=== PATIENT | male | born 1995 | race Two or more races ===

== ENCOUNTER 2022-07-11 18:27 | Inpatient (IN) | payer OTHER ==
[~2022-07-11] VITALS: Ht 177.8 cm; Wt 90.7 kg
--- NOTE | 2022-07-11 18:54 | NUR ---
PTE SE RECIBE A LAS 6:15 HIPOACTIVO Y SIN PULSO. PTE SE LE COMIENZA COMPRENSIONES Y ACTIVA CLAVE GARDENIA. A LAS 6:18 PTE SE OBSERVA CON PULSO DE 97 Y SE CONTINUA CON AMBU. DESDE LAS 6:20 HASTA LAS 6:22 DR HURTADO INTENTO INTUBAR PTE Y NO PUDO. A LAS 6:24 LLEGA ANESTESIA Y SE INTUMBA A LAS 6:25. A LAS 6:25 SE ADM ROMAZICON Y NARCAN Y SE OBSEREVA QUE EL PTE SE [place]. DR HURTADO ORDENO RESTRINCION X 4.
== END 2022-07-14 12:04 | disposition home or self-care (01) | DRG 917 ==
LOC: EDBD 18:27 → ER 18:27 → MEDI 22:04 → ICU-2 22:04 → ICU 22:20 → ICU-2 22:36 → MEDI 07-12 11:32
PROVIDERS: ADMIT Internal Medicine; ATTEND Internal Medicine
PROC: 0BH17EZ Insertion of Endotracheal Airway into Trachea, Via Natural or Artificial Opening (ICD-10-PCS; principal; 2022-07-11)
PROC: 5A1935Z Respiratory Ventilation, Less than 24 Consecutive Hours (ICD-10-PCS; 2022-07-11)
PROC: BW28ZZZ Computerized Tomography (CT Scan) of Head (ICD-10-PCS; 2022-07-11)
PROC: B24BZZZ Ultrasonography of Heart with Aorta (ICD-10-PCS; 2022-07-13)
PROC: 4A12X4Z Monitoring of Cardiac Electrical Activity, External Approach (ICD-10-PCS; 2022-07-14)
DX: T42.4X1A Poisoning by benzodiazepines, accidental (unintentional), initial encounter (principal); I46.8 Cardiac arrest due to other underlying condition; J96.00 Acute respiratory failure, unspecified whether with hypoxia or hypercapnia; N17.8 Other acute kidney failure; T40.711A Poisoning by cannabis, accidental (unintentional), initial encounter; T40.2X1A Poisoning by other opioids, accidental (unintentional), initial encounter; T40.411A Poisoning by fentanyl or fentanyl analogs, accidental (unintentional), initial encounter; N18.9 Chronic kidney disease, unspecified; F41.8 Other specified anxiety disorders; F10.20 Alcohol dependence, uncomplicated; Z20.822 Contact with and (suspected) exposure to COVID-19; J45.909 Unspecified asthma, uncomplicated

== ENCOUNTER 2023-06-05 11:09 | Emergency (ER) | payer OTHER ==
[~2023-06-05] VITALS: Ht 167.6 cm; Wt 81.6 kg
== END 2023-06-05 13:15 | disposition home or self-care (01) ==
LOC: ER 11:09
DX: T40.414A Poisoning by fentanyl or fentanyl analogs, undetermined, initial encounter (principal); Y92.89 Other specified places as the place of occurrence of the external cause